=== PATIENT | male | born 1930 | race Caucasian/White ===

== ENCOUNTER 2016-09-14 10:47 | Outpatient (CLI) | payer OTHER ==
--- NOTE | 2016-09-14 11:45 | DIAGNOSTIC IMAGING REPORT ---
PROCEDURE: CT ABDOMEN/PELVIS W/O CONTRAST INDICATION: History of renal carcinoma with left nephrectomy. Elevated PSA. TECHNIQUE: Noncontrast axial images were obtained of the entire abdomen and pelvis with sagittal and coronal reformations. COMPARISON: CT chest/abdomen/pelvis 10/08/2014. FINDINGS: ABDOMEN: Stable 4 mm ground-glass right lower lobe nodule. Right basilar scarring. Heart size is normal. Left nephrectomy without evidence of tumor recurrence or metastatic disease. Stable 5 mm cyst in the dome of the liver anteriorly. Small calcified gallstones. Calcified splenic granulomas. Pancreas and right adrenal gland are normal. Right renal lower pole scarring with 3 cm right renal lower pole cyst. No hydronephrosis. Normal ureter. Severe atherosclerosis of the aorta. Nonspecific bowel gas pattern. Stable wide necked fat-containing midline epigastric ventral wall hernia. PELVIS: Appendicolith but no evidence of acute appendicitis. Enlarged prostate, 5.7 cm. Bladder is unremarkable. Stable bilateral fat containing inguinal hernias. No free fluid, adenopathy or inflammatory changes. Moderately severe degenerative changes of the spine. IMPRESSION: 1. Left nephrectomy without evidence of tumor recurrence or metastatic disease 2. Right renal lower pole scarring and renal cyst without evidence of hydronephrosis 3. Cholelithiasis 4. Epigastric ventral and bilateral inguinal hernias 5. Appendicolith but otherwise normal appendix 6. Enlarged prostate All CT scans at this facility use dose modulation, iterative reconstruction, and/or weight-based dosing when appropriate to reduce radiation dose to as low as reasonably achievable.
== END 2016-09-14 23:00 | disposition home or self-care (01) ==
LOC: CT SRH 10:47
DX: N40.0 Benign prostatic hyperplasia without lower urinary tract symptoms (principal); Z90.5 Acquired absence of kidney

== ENCOUNTER → 2016-09-20 | Outpatient (CLI) | payer OTHER ==
--- NOTE | 2016-09-20 13:58 | DIAGNOSTIC IMAGING REPORT ---
PROCEDURE: NM BONE/JOINT WHOLE BODY INDICATION: ELEVATED PSA TECHNIQUE: The patient was injected intravenously with 26 mCi of technetium 99m MDP. Following a 3 to 4 hour delay, whole body anterior and posterior planar scintigraphic images were acquired. In some cases, spot planar images of abnormal regions in varying projections were acquired. COMPARISON: 10/16/2011 and correlation made to recent CT of the abdomen pelvis 09/14/2016 FINDINGS: Axial skeleton: Mild radiotracer uptake in the lower cervical spine anterior aspect of the vertebral bodies, similar compared to the prior study. Very subtle radiotracer uptake in the left lateral L4 vertebral body without corresponding lesion on CT scan. This is probably due to asymmetric vertebral body degeneration. No radiotracer uptake in the L3 sclerotic vertebral body lesion (chronic CT scan finding). Symmetric radiotracer uptake at the sternoclavicular joints and at the first costosternal junction. Symmetric radiotracer uptake throughout the ribs and pelvis. Appendicular skeleton: Symmetric radiotracer uptake in both shoulders, knees, wrists, and ankles. No suspicious appendicular radiotracer activity. The patient is status post left nephrectomy. Radiotracer was excreted physiologically. IMPRESSION: 1. No scintigraphic evidence of metastatic disease. 2. Mild degenerative radiotracer uptake in the cervical and lumbar spine. 3. Symmetric degenerative radiotracer uptake sternoclavicular region, shoulders, wrists, knees, ankles. 4. Left nephrectomy.
== END ==
LOC: NM SRH 09:23
DX: C64.9 Malignant neoplasm of unspecified kidney, except renal pelvis (principal); R97.20 Elevated prostate specific antigen [PSA]; Z90.5 Acquired absence of kidney